=== PATIENT | female | born 1975 | race Caucasian/White ===

== ENCOUNTER 2016-09-08 06:46 | Emergency (ER) | payer BC, OTHER ==
[2016-09-08] MEDS ORDERED: Ondansetron INJ* 2 MG/ML VIAL IV ONE (07:22)
[2016-09-08] MEDS ORDERED: NS 0.9% 1000 ML* 2,000 ML IV ONE (07:22)
[2016-09-08] MEDS ORDERED: Ketorolac INJ* 30 MG/ML 1 ML VIAL IV PUSH ONE (07:23)
--- NOTE | 2016-09-08 07:29 | ED ---
Influenza-Like Illness - HPI Summary HPI Summary: Pt here w/ acute onset flu-like sx last night while at work. Fever, chills, AG, N+V, ST, sneezing, rhinorrhea w/ PND, otalgia, body aches, sore neck glands. Denies cough, chest pain, SOB, rash, diarrhea, ab pain. Did not receive influenza vaccine this year. 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 Has not tried anything to alleviate sx yet. Also reports she was scratched on her hand/arm by her cat 2 days ago - area is healing well - no swelling, redness or streaking. LMP - having this now. - History of Current Complaint Chief Complaint: EDFluSymptoms Time Seen by Provider: 09/08/16 07:11 Hx Obtained From: Patient - Allergy/Home Medications Allergies/Adverse Reactions: Allergies Allergy/AdvReac Type Severity Reaction Status Date / Time Shellfish Allergy Allergy Swelling Verified 11/29/14 17:54 Antihistamines, AdvReac See Comment Verified 11/29/14 17:54 Diphenhydramine-typ PMH/Surg Hx/FS Hx/Imm Hx Previously Healthy: Yes Endocrine/Hematology History: Denies: Hx Diabetes, Autoimmune Disease Cardiovascular History: Denies: Hx Hypertension, Hx Pacemaker/ICD Respiratory History: Denies: Hx Asthma GI History: Denies: Hx Crohn's Disease Sensory History: Denies: Hx Hearing Aid Neurological History: Reports: Other Neuro Impairments/Disorders - neurofibromatosis Psychiatric History: Denies: Hx Panic Disorder - Cancer History Hx Chemotherapy: No Hx Radiation Therapy: No - Surgical History Surgery Procedure, Year, and Place: TUBAL LIGATION 07/13/2006, MULTIPLE FIBROMAS REMOVED, - Immunization History Date of Tetanus Vaccine: Unk Date of Influenza Vaccine: None Infectious Disease History: No Infectious Disease History: Denies: History Other Infectious Disease - mono, Traveled Outside the [place] in Last 30 Days - Family History Known Family History: Positive: Cardiac Disease, Other - cancer - Social History Occupation: Employed Full-time Lives: With Family - children Alcohol Use: Occasionally - handful of times a year Hx Substance Use: No Substance Use Type: Reports: None Hx Tobacco Use: No Smoking Status (MU): Never Smoked Tobacco Review of Systems Positive: Fever, Chills, Fatigue Negative: Photophobia, Blurred Vision, Diplopia, Drainage, Erythema ENT: Other - see HPI Negative: Chest Pain Negative: Shortness Of Breath, Cough Gastrointestinal: Other - see HPI Positive: no symptoms reported Positive: Myalgia - see HPI Negative: Rash Positive: Headache. Negative: Weakness, Paresthesia, Numbness Psychological: Normal All Other Systems Reviewed And Are Negative: Yes Physical Exam Triage Information Reviewed: Yes Vital Signs On Initial Exam: Initial Vitals Temp Pulse Resp BP Pulse Ox 102.4 F 97 18 117/58 100 09/08/16 06:56 09/08/16 06:56 09/08/16 06:56 09/08/16 06:56 09/08/16 06:56 Vital Signs Reviewed: Yes Appearance: Positive: Well-Nourished, Ill-Appearing - pt wearing coat with buitrago over head, Pain Distress - AG - appears mildly photosensitive Skin: Positive: Warm, Dry - diffuse skin flesh-colored tumors; scant small scabbed linear abrasions over Lt hand/wrist area - no erythema, no edema, no d/c , no streaking - NTTP Head/Face: Positive: Normal Head/Face Inspection Eyes: Positive: Normal, EOMI, LULA, Conjunctiva Clear, Conjunctiva Inflammed, Discharge ENT: Positive: Hearing grossly normal, Pharyngeal erythema - mild along peritonsilar arches w/ cobblestoning, TMs normal. Negative: Nasal congestion, Nasal drainage, Tonsillar swelling, Tonsillar exudate Neck: Positive: Supple, Tenderness @, Enlarged Nodes @ - shotty anterior cc LN's Respiratory/Lung Sounds: Positive: Clear to Auscultation, Breath Sounds Present. Negative: Rales, Rhonchi, Stridor, Wheezes Cardiovascular: Positive: Normal, RRR, S1, S2. Negative: Murmur, Rub Abdomen Description: Positive: No Organomegaly, Soft, Other: - mild LUQ TTP - no rebounding Bowel Sounds: Positive: Present Musculoskeletal: Positive: Normal, Strength/ROM Intact Neurological: Positive: Normal, Sensory/Motor Intact, Alert, Oriented to Person Place, Time, CN Intact II-III Psychiatric: Positive: Normal Diagnostics - Vital Signs Vital Signs Temp Pulse Resp BP Pulse Ox 09/08/16 06:56 102.4 F 97 18 117/58 100 - Laboratory Result Diagrams: 09/08/16 07:40 09/08/16 07:40 Lab Statement: Any lab studies that have been ordered have been reviewed, and results considered in the medical decision making process. Re-Evaluation - Re-Evaluation First Eval Change: Improved - fever, AG, nausea, myalgias improved s/p fluids, toradol and zofran Flu Symptom Course/Dx - Course Course Of Treatment: Pt's influenza is negative however strep is +. She has a h/ o strep as a child but none as an adult. She could be colonized however has ST today so will tx. D/t systemic sx along w/ lymphadenopathy and LUQ (possible splenomegaly) will also cover for cat scratch disease in light of her recent injury. Will tx w/ zpak as this covers both strep and CSD. Pt advised to f/u w/ PCP next week for re-eval and to return here sooner if danger s/sx present. Pt agrees w/ plan. - Diagnoses Provider Diagnoses: Strep throat, Cat scratch Discharge - Discharge Plan Condition: Stable Disposition: HOME Prescriptions: Azithromycin TAB* [Zithromax TAB (Z-STUART) 250 mg #6 tabs] 250 mg PO DAILY #4 tab Ondansetron ODT TAB* [Zofran Odt TAB*] 4 mg PO Q8H PRN #9 tab.odt PRN Reason: Nausea Patient Education Materials: Strep Throat (ED), Cat Scratch Disease (ED) Forms: *Work Release Referrals: Neymar Serrano MD [Primary Care Provider] - Additional Instructions: You may try the following to help with symptoms: *Nasal wash (netti pot) & throat gargle 2 x day with 8 ounces of warm water + 1/ 4 teaspoon of salt *Drink 60+ ounces of water daily *Sleep 8+ hours per night *You may take ibuprofen alternating with acetaminophen for fever, pain *Avoid Dairy and sugar *Hot herbal/decaf tea with lemon & honey *Chicken broth (preferably organic, free range chicken) *Humidifier in house, but especially near bed at night for cough *Try a facial steam with or without eucalyptus essential oil for cough, nasal congestion Consider taking Vitamin C 1,000mg every day during illness Start probiotics in between and after completion of antibiotics (ie. Yogurt and/ or capsules of L. acidophilus, L. bifidus, L. casei, etc - make sure to get these from the refrigerated food section as they are live and active cultures) Follow-up with PCP next week. If symptoms worsen prior, return to ED
[2016-09-08 07:55] LABS: Hematocrit 39 % (35-47); Hemoglobin 13.4 g/dl (12.0-16.0); Mean Corpuscular HGB Conc 34 g/dl (31-36); Mean Corpuscular Hemoglobin 29 pg (27-31); Mean Corpuscular Volume 84 fL (80-97); Mean Platelet Volume 9 um3 (7.4-10.4); Red Blood Count 4.66 10^6/ul (4.0-5.4); Red Cell Distribution Width 15 % (10.5-15); White Blood Count 11.6 10^3/ul (3.5-10.8)
[2016-09-08 08:02] LABS: Urine Bacteria Absent (Absent); Urine Bilirubin Negative (Negative); Urine Glucose Negative (Negative); Urine Nitrite Negative (Negative)
[2016-09-08 08:10] LABS: BUN/Creatinine Ratio 17.3 (8-20); C Reactive Protein 44.61 mg/L (< 5.00); Calcium 9.1 mg/dL (8.6-10.3); EGFR African American 109.5 (>60); EGFR Non-African American 85.2 (>60); Globulin 3.2 g/dL (2-4); Potassium 3.3 mmol/L (3.5-5.0); Total Bilirubin 0.4 mg/dL (0.2-1.0); Total Protein 7.2 g/dL (6.4-8.9)
[2016-09-08] MEDS ORDERED: Azithromycin TAB* 250 MG PO ONE (08:40)
[2016-09-08 09:18] VITALS: BP 111/46
== END 2016-09-08 09:16 | disposition home or self-care (01) ==
LOC: ED 06:46
DX: J02.0 Streptococcal pharyngitis (principal); S40.819A Abrasion of unspecified upper arm, initial encounter; R50.9 Fever, unspecified; R51 Headache; R11.2 Nausea with vomiting, unspecified; R53.83 Other fatigue; W55.03XA Scratched by cat, initial encounter; Y93.9 Activity, unspecified; Y92.9 Unspecified place or not applicable; Y99.9 Unspecified external cause status
CPT/HCPCS: 36415; 80053; 81003; 81015; 83605; 83690; 85025; 86140; 87502; 87651; 96374; 96375; 99283; A9270-GY; J1885; J2405

== ENCOUNTER → 2016-12-19 09:32 | Emergency (ER) | payer BC ==
[~2016-12-19 09:32] MED LIST: Tetan/Diph/Pertus SYR(Tdap)* 0.5 ML SYR(BOOSTRIX) use SYR IM ONE
--- NOTE | 2016-12-19 11:41 | ED ---
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 3rd finger lac is larger, bleeding more. 4th finger lac smaller and stopped bleeding w/ pressure. Not sure of her last tetanus vaccine. No numbness , tingling, weakness - FROM and strength in affected phalanges and UE in general. - History of Current Complaint Chief Complaint: EDLacSutureRecheck Time Seen by Provider: 12/19/16 10:30 Stated Complaint: RT HAND / FINGER LAC Hx Obtained From: Patient Pain Intensity: 9 - Allergy/Home Medications Allergies/Adverse Reactions: Allergies Allergy/AdvReac Type Severity Reaction Status Date / Time Shellfish Allergy Allergy Swelling Verified 11/29/14 17:54 Antihistamines, AdvReac See Comment Verified 11/29/14 17:54 Diphenhydramine-typ PMH/Surg Hx/FS Hx/Imm Hx Previously Healthy: Yes Endocrine/Hematology History: Denies: Hx Anticoagulant Therapy, Hx Blood Disorders, Hx Diabetes, Hx Unexplained Bleeding Cardiovascular History: Denies: Hx Hypertension, Hx Pacemaker/ICD Respiratory History: Denies: Hx Asthma GI History: Denies: Hx Crohn's Disease Sensory History: Denies: Hx Hearing Aid Neurological History: Reports: Other Neuro Impairments/Disorders - neurofibromatosis Psychiatric History: Denies: Hx Panic Disorder - Cancer History Hx Chemotherapy: No Hx Radiation Therapy: No - Surgical History Surgery Procedure, Year, and Place: TUBAL LIGATION 07/13/2006, MULTIPLE FIBROMAS REMOVED, - Immunization History Date of Tetanus Vaccine: Unk Date of Influenza Vaccine: None Infectious Disease History: No Infectious Disease History: Denies: History Other Infectious Disease - mono, Traveled Outside the [place] in Last 30 Days - Family History Known Family History: Positive: Cardiac Disease, Other - cancer - Social History Occupation: Employed Full-time Alcohol Use: None Hx Substance Use: No Substance Use Type: Reports: None Hx Tobacco Use: No Smoking Status (MU): Never Smoked Tobacco Review of Systems Negative: Fever, Chills, Fatigue Negative: Chest Pain Negative: Shortness Of Breath Negative: Nausea Negative: Decreased ROM, Edema Skin: Other - see HPI Neurological: Negative Negative: Weakness, Paresthesia, Numbness Positive: Anxious All Other Systems Reviewed And Are Negative: Yes Physical Exam Triage Information Reviewed: Yes Vital Signs On Initial Exam: Initial Vitals Temp Pulse Resp BP Pulse Ox 96.9 F 68 20 125/57 100 12/19/16 09:35 12/19/16 09:35 12/19/16 09:35 12/19/16 09:35 12/19/16 09:35 Vital Signs Reviewed: Yes Appearance: Positive: Well-Appearing, No Pain Distress, Well-Nourished - pleasant, concerned Skin: Positive: Warm - superficial laceration of 4th distal phalange - no active bleeding; flap laceration of 3rd distal dorsa phalange - bleeding s/p lavage and exploration - black streaking along tissue - skimmed through part of subcutaneous tissue - no tendon observed d/t minimal depth - no nerves or vessels observed Head/Face: Positive: Normal Head/Face Inspection Eyes: Positive: Normal, EOMI, Conjunctiva Clear ENT: Positive: Hearing grossly normal, Pharynx normal Respiratory/Lung Sounds: Positive: Breath Sounds Present Cardiovascular: Positive: Normal, Pulses are Symmetrical in both Upper and Lower Extremities Musculoskeletal: Positive: Normal, Strength/ROM Intact Neurological: Positive: Normal, Sensory/Motor Intact, Alert, Oriented to Person Place, Time, CN Intact II-III, Reflexes Intact Psychiatric: Positive: Normal Procedures - Laceration/Wound Repair 1 Location: upper extremity Length, Depth and Shape: flap w/ black streak within tissue - looked like necrotic vessel? Betadine Prep?: Yes Suture Type: Prolene - 5-0 Number of Sutures: 7 2 Location: upper extremity - Rt 4th distal dorsal digit, superficial laceration Description: Irregular - flap Length, Depth and Shape: 0.5cm x 1.5mm Betadine Prep?: No Irrigated w/ Saline (ccs): 500 - iodine solution soak Laceration/Wound Explored: clean Number of Sutures: 0 Layer Closure?: No Sterile Dressing Applied?: Yes - triple anbx + bandaid Diagnostics - Vital Signs Vital Signs Temp Pulse Resp BP Pulse Ox 12/19/16 09:37 98.1 F 66 20 125/57 99 12/19/16 09:35 96.9 F 68 20 125/57 100 - Laboratory Lab Statement: Any lab studies that have been ordered have been reviewed, and results considered in the medical decision making process. Course/Dx - Course Course Of Treatment: WOunds cleaned - no evidence of tendon injury - repaired and dressed. Care instructions reviewed and printed. F/u w/ hand specialist. - Diagnoses Provider Diagnoses: Laceration of right middle finger, Laceration of right ring finger Discharge - Discharge Plan Condition: Stable Disposition: HOME Patient Education Materials: Care For Your Stitches (ED), Finger Laceration (ED ) Forms: *Work Release Referrals: Taye Rios MD [Medical Doctor] - Additional Instructions: Keep dressing clean, dry and intact for 48 hours- after this time, you may remove dressing - gently wash with soap and water - rinse well and pat dry with clean cloth - reapply triple antibiotic ointment and clean dressing. Rest, ice, elevate for pain/swelling. You may take ibuprofen alternating with acetaminophen for pain. Follow-up with hand specialist this week for re-eval and suture removal, estimated for 10 days from today however will defer to the discretion of specialist. *If you develop redness, swelling, streaking, purulent drainage, fever, seek medical attention sooner.
[2016-12-19 13:57] VITALS: BP 105/37
== END | disposition home or self-care (01) ==
LOC: ED 09:32
DX: S61.212A Laceration without foreign body of right middle finger without damage to nail, initial encounter (principal); S61.214A Laceration without foreign body of right ring finger without damage to nail, initial encounter; W26.9XXA Contact with unspecified sharp object(s), initial encounter; Y93.9 Activity, unspecified; Y92.9 Unspecified place or not applicable
CPT/HCPCS: 12002; 90471; 90715; 99282

== ENCOUNTER → 2018-06-12 12:32 | Day surgery (SDC) | payer BC, OTHER ==
[~2018-06-12 12:32] MED LIST changes: +Artificial Tear OPHTH.OINT* 3.5 GM ONE; +Buffered Lidocaine 0.9% SYRIN* 5 ML/SYR SYRINGE INTRADERM ONE; +Bupivacaine 0.25% SDV* 30 ML ONE; +Bupivacaine 0.25% W/EPI* 10 ML SDV ONE; +Lidocain 1% EPI 1:100,000 * 30 ML MDV ONE; +Lidocaine 2% PF * 5 ML VIAL ONE; +Methylene Blue 0.5 %* 50 MG/10 ML AMP IV ONE; +Midazolam* 1 MG/ML 2 ML VIAL (2 MG) ONE; +Mineral Oil Sterile, TOPICAL* 25 ML BTL ONE; +Naloxone* 0.4 MG/ML 1 ML VIAL IV PRN; +Propofol* 10 MG/ML 20 ML BTL IV PUSH ONE; -Tetan/Diph/Pertus SYR(Tdap)* 0.5 ML SYR(BOOSTRIX) use SYR IM ONE; +ceFAZolin 2 GM PREMIX in ORs 2 GM/50 ML BAG IVPB ONE; +fentaNYL* 50 MCG/ML 2 ML VIAL (100 MCG VIAL) ONE
[2018-06-12 17:28] VITALS: BP 104/70
== END | disposition home or self-care (01) ==
LOC: OR 12:32
PROVIDERS: ATTEND Plastic Surgery
DX: L84 Corns and callosities (principal); Q85.01 Neurofibromatosis, type 1
CPT/HCPCS: 81025; 88305; A9270-GY; J0690; J2250; J2704; J3010